=== PATIENT | male | born 1980 | race Caucasian/White ===

== ENCOUNTER 2016-04-16 07:26 | Emergency (ER) | payer MEDICARE ==
--- NOTE | 2016-04-16 09:33 | ER Document Report ---
HPI - HPI Patient complains to provider of: low back pain Onset: Yesterday - when he got up yesterday am Onset/Duration: Intermittent - chronic Quality of pain: Throbbing Pain Level: 3 Context: 35 yo male woke up with low back pain yesteday am. hx chronic back pain intermittanty. NO fever or chills. no radiculopahty or saddle anesthesia. [facility] is [facility]. Associated Symptoms: None Exacerbated by: Movement Relieved by: Denies - ROS ROS below otherwise negative: Yes Systems Reviewed and Negative: Yes All other systems reviewed and negative - DERM Skin Color: Normal Past Medical History - General Information source: Patient - Social History Smoking Status: Never Smoker Chew tobacco use (# tins/day): No Frequency of alcohol use: None Drug Abuse: None Lives with: Spouse/Significant other Family History: Reviewed & Not Pertinent Patient has suicidal ideation: No Patient has homicidal ideation: No - Past Medical History Cardiac Medical History: Reports: Hx Hypertension Psychiatric Medical History: Reports: Hx Anxiety, Hx Depression Surgical Hx: Negative - Immunizations Hx Diphtheria, Pertussis, Tetanus Vaccination: Yes Vertical Provider Document - CONSTITUTIONAL Agree With Documented VS: Yes Exam Limitations: No Limitations General Appearance: Mild Distress - INFECTION CONTROL TRAVEL OUTSIDE OF THE [place] IN LAST 30 DAYS: No - HEENT HEENT: Normocephalic - NECK Neck: Supple - RESPIRATORY O2 Sat by Pulse Oximetry: 99 - BACK Back: Normal Inspection - MUSCULOSKELETAL/EXTREMETIES Musculoskeletal/Extremeties: MAEW, FROM, Tender - lumbar back muscles bilaterally - NEURO Level of Consciousness: Awake, Alert Motor/Sensory: No Motor Deficit, No Sensory Deficit Deep Tendon Reflexes: 2+ - lilian ankle and patellar - DERM Integumentary: Warm, Dry, No Rash Course - Vital Signs Vital signs: Temp Pulse Resp BP Pulse Ox 97.9 F 103 H 20 117/75 99 04/16/16 07:42 04/16/16 07:42 04/16/16 07:42 04/16/16 07:42 04/16/16 07:42 Discharge - Discharge Clinical Impression: exacerbation of chronic low back pain Condition: Good Disposition: HOME, SELF-CARE Instructions: Low Back Pain ([facility]), Warm Packs ([facility]), Ultram ([facility]), Anti- Inflammatory Medication ([facility]), Acetaminophen Additional Instructions: warm compress to er if worse take your motrin Prescriptions: Tramadol HCl [Ultram 50 mg Tablet] 50 mg PO ASDIR PRN #30 tablet PRN Reason: Referrals: ABY CHINO MD [Primary Care Provider] - Follow up as needed
[2016-04-16 09:47] VITALS: BP 120/78
== END 2016-04-16 09:47 | disposition home or self-care (01) ==
LOC: ER 07:26
DX: G89.29 Other chronic pain (principal); M54.5 Low back pain; I10 Essential (primary) hypertension
CPT/HCPCS: 99283

== ENCOUNTER 2016-06-14 09:24 | Emergency (ER) | payer MEDICARE ==
[2016-06-14 09:34] VITALS: BP 116/82
--- NOTE | 2016-06-14 10:19 | ER Document Report ---
ED Medical Screen (RME) - General Stated Complaint: LEFT HIP AND LEG PAIN Time seen by provider: 10:12 Mode of Arrival: Ambulatory Information source: Patient Notes: 35-year-old male with chronic back pain ([facility]) is concerned that his back pain is now radiating into the posterior aspect of his left leg and left lateral left knee. He saw Dr. Solis's nurse practitioner who stated that he strained his leg no saddle anesthesia. And he is wanting to get an MRI to find out what's wrong. I have greeted and performed a rapid initial assessment of this patient. A comprehensive ED assessment, evaluation of the patient, analysis of test results , and completion of the medical decision making process will be conducted by additional ED providers. TRAVEL OUTSIDE OF THE [place] IN LAST 30 DAYS: No - Related Data Allergies/Adverse Reactions: No Known Allergies Allergy (Verified 06/14/16 10:10) Past Medical History - Past Medical History Cardiac Medical History: Reports: Hx Hypertension Psychiatric Medical History: Reports: Hx Anxiety, Hx Depression - Immunizations Hx Diphtheria, Pertussis, Tetanus Vaccination: Yes Physical Exam - Vital signs Vitals: Temp Pulse Resp BP Pulse Ox 97.6 F 89 16 116/82 99 06/14/16 09:33 06/14/16 09:33 06/14/16 09:33 06/14/16 09:33 06/14/16 09:33 Course - Vital Signs Vital signs: Temp Pulse Resp BP Pulse Ox 97.6 F 89 16 116/82 99 06/14/16 09:33 06/14/16 09:33 06/14/16 09:33 06/14/16 09:33 06/14/16 09:33
--- NOTE | 2016-06-14 11:07 | ER Document Report ---
HPI - HPI Patient complains to provider of: left knee pain Onset: Other - One month Onset/Duration: Persistent Quality of pain: Achy Pain Level: 3 Context: Patient complains of left knee pain for the past month. Patient denies any specific injury. Patient states that he was running and swimming and gradually developed knee pain about a month ago. Patient states that pain worsens with standing and range of motion. Patient states that he is here because he wants to have an MRI done so that he can find out definitively what is going on with his continued left knee joint pain. Associated Symptoms: Other - Left knee pain Exacerbated by: Standing, Movement, Walking Relieved by: Denies Similar symptoms previously: No Recently seen / treated by doctor: No - ROS ROS below otherwise negative: Yes Systems Reviewed and Negative: Yes All other systems reviewed and negative - CONSTITUTIONAL Constitutional: DENIES: Fever, Chills - CARDIOVASCULAR Cardiovascular: DENIES: Chest pain - GASTROINTESTINAL Gastrointestinal: DENIES: Nausea, Patient vomiting - MUSCULOSKELETAL Musculoskeletal: REPORTS: Extremity pain - Left knee. DENIES: Swelling - DERM Skin Color: Normal Skin Problems: None Past Medical History - General Information source: Patient - Social History Smoking Status: Current Every Day Smoker Chew tobacco use (# tins/day): No Frequency of alcohol use: Occasional Drug Abuse: None Occupation: [employer] Lives with: Family Family History: Reviewed & Not Pertinent Patient has suicidal ideation: No Patient has homicidal ideation: No Renal/ Medical History: Denies: Hx Peritoneal Dialysis Musculoskeltal Medical History: Reports Hx Arthritis - Chronic back pain Psychiatric Medical History: Reports: Hx Anxiety, Hx Depression Surgical Hx: Negative - Immunizations Hx Diphtheria, Pertussis, Tetanus Vaccination: Yes Vertical Provider Document - CONSTITUTIONAL Agree With Documented VS: Yes Exam Limitations: No Limitations General Appearance: WD/WN, No Apparent Distress - INFECTION CONTROL TRAVEL OUTSIDE OF THE [place] IN LAST 30 DAYS: No - HEENT HEENT: Atraumatic, Normocephalic - NECK Neck: Normal Inspection - RESPIRATORY Respiratory: Breath Sounds Normal, No Respiratory Distress O2 Sat by Pulse Oximetry: 99 - CARDIOVASCULAR Cardiovascular: Regular Rate, Regular Rhythm Pulses: Normal: Posterior tibial - BACK Back: Normal Inspection - MUSCULOSKELETAL/EXTREMETIES Musculoskeletal/Extremeties: MAEW, Tender - Left knee joint tenderness along lateral compartment, no joint effusion, no laxity with varus or valgus maneuvers , patellar tendon intact. Normal skin color and temperature overlying joint., No Edema. negative: Eccymosis - NEURO Level of Consciousness: Awake, Alert, Appropriate Motor/Sensory: No Motor Deficit, No Sensory Deficit - DERM Integumentary: Warm, Dry, No Rash Course - Re-evaluation Re-evalutation: 06/14/16 11:08 Patient states that he wants to leave because he only came here for an MRI of his knees he could find out definitively with on him with his knee. Patient advised that he does not need an emergent MRI of the knee that he can have this scheduled as an outpatient by his primary doctor. Patient states he would like to be discharged now because he only came here for an MRI. - Vital Signs Vital signs: Temp Pulse Resp BP Pulse Ox 97.6 F 89 16 116/82 99 06/14/16 09:33 06/14/16 09:33 06/14/16 09:33 06/14/16 09:33 06/14/16 09:33 Discharge - Discharge Clinical Impression: Knee pain, left Qualifiers: Chronicity: unspecified Qualified Code(s): M25.562 - Pain in left knee Condition: Stable Disposition: HOME, SELF-CARE Instructions: Suspected Internal Knee Injury ([facility]), Sprained Knee ([facility]), Acetaminophen, Use of [id number] Ibuprofen ([facility]) Additional Instructions: Return immediately for any new or worsening symptoms Followup with your primary care provider, call tomorrow to make a followup appointment Follow up with orthopedic DrHam for further evaluation of left knee joint pain Referrals: [facility]HENDRA MALDONADO FOR SURGERY ([facility]) [Provider Group] - Follow up in 3-5 days
== END 2016-06-14 11:15 | disposition home or self-care (01) ==
LOC: ER 09:24
DX: M25.562 Pain in left knee (principal); F17.200 Nicotine dependence, unspecified, uncomplicated
CPT/HCPCS: 99283

== ENCOUNTER 2017-05-23 07:33 | Emergency (ER) | payer MEDICARE ==
[2017-05-23] MEDS ORDERED: MAG HYDROX/AL HYDROX/SIMETH SUSP 30 ML UDCUP PO ONE (08:00)
[2017-05-23] MEDS ORDERED: LIDOCAINE 2% VISCOUS SOLN 20 ML UDCUP PO ONE (08:00)
[2017-05-23] MEDS ORDERED: NORMAL SALINE 1000 ML 1,000 ML IV ONE (08:01)
[2017-05-23] MEDS ORDERED: ONDANSETRON HCL INJ/PF 4 MG/2 ML SDV IV ONE (08:30)
--- NOTE | 2017-05-23 08:32 | ER Document Report ---
ED GI/ - General Chief Complaint: Abdominal Cramping Stated Complaint: ABDOMINAL PAIN Time Seen by Provider: 05/23/17 07:49 Mode of Arrival: Ambulatory Information source: Patient Notes: Patient reports that abdominal pain started around 4 this morning. Patient states he has had a lot of belching. Patient states pain is been off and on and varies in intensity. Patient does complain of headache pain as well. Patient does report a previous history of reflux symptoms. Patient denies any fever. TRAVEL OUTSIDE OF THE [place] IN LAST 30 DAYS: No - HPI Patient complains to provider of: Abdominal pain Onset: This morning Timing/Duration: Gradual Quality of pain: Sharp Pain Level: 5 Location: Epigastric, RUQ Associated symptoms: denies: Chest pain, Diarrhea, Dysuria, Loss of appetite, Nausea, Urinary hesitancy, Urinary frequency, Urinary retention, Urinary urgency Exacerbated by: Denies Relieved by: Denies Similar symptoms previously: No Recently seen / treated by doctor: No - Related Data Allergies/Adverse Reactions: No Known Allergies Allergy (Verified 06/14/16 10:10) Past Medical History - General Information source: Patient - Social History Smoking Status: Current Every Day Smoker Chew tobacco use (# tins/day): No Smoking Education Provided: Yes Frequency of alcohol use: Occasional Drug Abuse: None Occupation: none Family History: Reviewed & Not Pertinent Patient has suicidal ideation: No Patient has homicidal ideation: No Renal/ Medical History: Denies: Hx Peritoneal Dialysis GI Medical History: Reports: Hx Gastroesophageal Reflux Disease Musculoskeltal Medical History: Reports Hx Arthritis - Chronic back pain Psychiatric Medical History: Reports: Hx Anxiety, Hx Depression Surgical Hx: Negative - Immunizations Hx Diphtheria, Pertussis, Tetanus Vaccination: Yes Review of Systems - Review of Systems Constitutional: No symptoms reported. denies: Fever, Recent illness EENT: No symptoms reported Cardiovascular: No symptoms reported. denies: Chest pain Respiratory: No symptoms reported. denies: Cough, Short of breath Gastrointestinal: Abdominal pain. denies: Diarrhea, Nausea, Vomiting, Poor appetite Genitourinary: No symptoms reported. denies: Dysuria, Flank pain Male Genitourinary: No symptoms reported Musculoskeletal: No symptoms reported. denies: Back pain Skin: No symptoms reported Hematologic/Lymphatic: No symptoms reported Neurological/Psychological: No symptoms reported Physical Exam - Vital signs Vitals: Temp Pulse Resp BP Pulse Ox 97.9 F 89 16 117/79 95 05/23/17 07:39 05/23/17 07:39 05/23/17 07:39 05/23/17 07:39 05/23/17 07:39 - General General appearance: Appears well, Alert In distress: None - HEENT Head: Normocephalic Eyes: Normal Conjunctiva: Normal - Respiratory Respiratory status: No respiratory distress Chest status: Nontender Breath sounds: Normal. No: Rales, Rhonchi, Stridor, Wheezing Chest palpation: Normal - Cardiovascular Rhythm: Regular Heart sounds: S1 appreciated, S2 appreciated - Abdominal Inspection: Normal Distension: No distension Bowel sounds: Normal Tenderness: Tender - epig, RUQ Organomegaly: No organomegaly - Back Back: Normal, Nontender. No: CVA tenderness - Extremities General upper extremity: Normal inspection, Nontender, Normal strength General lower extremity: Normal inspection, Nontender, Normal strength - Neurological Neuro grossly intact: Yes Cognition: Normal Orientation: AAOx4 [place] Coma Scale Eye Opening: Spontaneous [place] Coma Scale Verbal: Oriented Sig[place] Coma Scale Motor: Obeys Commands [place] Coma Scale Total: 15 - Psychological Associated symptoms: Normal affect, Normal mood - Skin Skin Temperature: Warm Skin Moisture: Dry Skin Color: Normal Course - Re-evaluation Re-evalutation: 05/23/17 08:32 Patient reports that he vomited in the bathroom. Additional medication ordered. 05/23/17 11:23 Patient reports that abdominal pain has been intermittent and he continues to have frequent belching. Ultrasound report reviewed with Dr. Cross, patient with normal bilirubin, no elevated LFTs and normal lipase test. 05/23/17 12:17 Abdomen continues soft, no guarding. Patient with no concern for biliary obstruction or cholecystitis or cholelithiasis. Discussed worsening symptoms that patient should return immediately for. Patient verbalized understanding and agrees with plan of care. Patient presents with abdominal pain without signs of peritonitis or other life-threatening or serious etiology. Patient appears stable for discharge and has been instructed to return immediately if the symptoms worsen in any way, or in 8-12 hours if not improved for reevaluation. The patient has been instructed to return if the symptoms worsen or change in any way. - Vital Signs Vital signs: Temp Pulse Resp BP Pulse Ox 98.3 F 94 12 130/87 H 98 05/23/17 11:55 05/23/17 11:55 05/23/17 11:55 05/23/17 11:55 05/23/17 11:55 - Laboratory Result Diagrams: 05/23/17 09:30 05/23/17 09:30 Laboratory results interpreted by me: 05/23/17 05/23/17 05/23/17 09:30 09:30 11:30 Seg Neutrophils % 78.6 H Lymphocytes % 12.3 L Carbon Dioxide 31 H Glucose 119 H Urine Ketones TRACE H Urine Urobilinogen 2.0 H Labs- Entire Visit 05/23/17 05/23/17 05/23/17 09:30 09:30 11:30 WBC 7.4 RBC 5.19 Hgb 15.7 Hct 45.8 MCV 88 MCH 30.3 MCHC 34.3 RDW 12.7 Plt Count 186 Seg Neutrophils % 78.6 H Lymphocytes % 12.3 L Monocytes % 7.7 Eosinophils % 0.9 Basophils % 0.5 Absolute Neutrophils 5.8 Absolute Lymphocytes 0.9 Absolute Monocytes 0.6 Absolute Eosinophils 0.1 Absolute Basophils 0.0 Sodium 140.3 Potassium 4.5 Chloride 104 Carbon Dioxide 31 H Anion Gap 5 BUN 11 Creatinine 0.99 Est GFR ( Amer) > 60 Est GFR (Non-Af Amer) > 60 Glucose 119 H Calcium 9.2 Total Bilirubin 0.6 Direct Bilirubin 0.3 Neonat Total Bilirubin Not Reportable Neonat Direct Bilirubin Not Reportable Neonat Indirect Bili Not Reportable AST 28 ALT 27 Alkaline Phosphatase 89 Total Protein 7.4 Albumin 4.3 Lipase 25.9 Urine Color YELLOW Urine Appearance CLEAR Urine pH 8.0 Ur Specific [place] 1.020 Urine Protein NEGATIVE Urine Glucose (UA) NEGATIVE Urine Ketones TRACE H Urine Blood NEGATIVE Urine Nitrite NEGATIVE Urine Bilirubin NEGATIVE Urine Urobilinogen 2.0 H Ur Leukocyte Esterase NEGATIVE Urine WBC (Auto) 0 Urine RBC (Auto) 0 Urine Mucus (Auto) OCC Urine Ascorbic Acid NEGATIVE - Diagnostic Test Radiology reviewed: Reports reviewed Discharge - Discharge Clinical Impression: Epigastric abdominal pain Condition: Stable Disposition: HOME, SELF-CARE Instructions: Abdominal Pain ([facility]), Reflux Disease (GERD) ([facility]) Additional Instructions: Return immediately for any new or worsening symptoms Followup with your primary care provider, call tomorrow to make a followup appointment Return for any worsening of symptoms, or lack of improvement Prescriptions: Omeprazole Magnesium [Prilosec Otc] 20 mg PO DAILY #15 tablet. Sucralfate [Carafate 1 gm Tablet] 1 gm PO ACHS #40 tablet Forms: Smoking Cessation Education Referrals: LEON CHOI MD [Primary Care Provider] - Follow up tomorrow
[2017-05-23 09:59] LABS: ABSOLUTE EOSINOPHILS # (AUTO) 0.1 10^3/uL (0.0-0.6); ABSOLUTE LYMPHOCYTES (AUTO) 0.9 10^3/uL (0.5-4.7); ABSOLUTE MONOCYTES (AUTO) 0.6 10^3/uL (0.1-1.4); ABSOLUTE NEUT (AUTO) 5.8 10^3/uL (1.7-8.2); BASOPHILS % (AUTO) 0.5 % (0-2); EOSINOPHILS % (AUTO) 0.9 % (0-6); HEMATOCRIT 45.8 % (37.9-51.0); HEMOGLOBIN 15.7 g/dL (13.5-17.0); LYMPHOCYTES % (AUTO) 12.3 % (13-45); MEAN CORPUSCULAR HEMOGLOBIN 30.3 pg (27.0-33.4); MEAN CORPUSCULAR HGB CONC 34.3 g/dL (32.0-36.0); MEAN CORPUSCULAR VOLUME 88 fl (80-97); MONOCYTES % (AUTO) 7.7 % (3-13); PLATELET COUNT 186 10^3/uL (150-450); RED BLOOD COUNT 5.19 10^6/uL (4.35-5.55); RED CELL DISTRIBUTION WIDTH 12.7 % (11.5-14.0); SEGMENTED NEUTROPHILS % (AUTO) 78.6 % (42-78); TOTAL CELLS COUNTED % (AUTO) 100 %; WHITE BLOOD COUNT 7.4 10^3/uL (4.0-10.5)
[2017-05-23 10:22] LABS: ALANINE AMINOTRANSFERASE 27 U/L (21-72); ALBUMIN 4.3 g/dL (3.5-5.0); ALKALINE PHOSPHATASE 89 U/L (38-126); ANION GAP 5 (5-19); ASPARTATE AMINO TRANSFERASE 28 U/L (17-59); BILIRUBIN,DIRECT 0.3 mg/dL (0.0-0.4); BILIRUBIN,TOTAL 0.6 mg/dL (0.2-1.3); BLOOD UREA NITROGEN 11 mg/dL (7-20); CALCIUM 9.2 mg/dL (8.4-10.2); CARBON DIOXIDE 31 mmol/L (22-30); CHLORIDE 104 mmol/L (98-107); GLUCOSE 119 mg/dL (75-110); LIPASE 25.9 U/L (23-300); POTASSIUM 4.5 mmol/L (3.6-5.0); SODIUM 140.3 mmol/L (137-145); TOTAL PROTEIN 7.4 g/dL (6.3-8.2)
--- NOTE | 2017-05-23 10:29 | RADIOLOGY REPORT (SQ) ---
EXAM DESCRIPTION: U/S ABDOMEN LIMITED W/O DOP COMPLETED DATE/TIME: 05/23/2017 10:11 am REASON FOR STUDY: epig, RUQ pain COMPARISON: None. TECHNIQUE: Dynamic and static grayscale images acquired of the right upper quadrant and recorded on PACS. Additional selected color Doppler and spectral images recorded. LIMITATIONS: Study limited due to acoustical interference from fat or from air in the bowel. FINDINGS: PANCREAS: Obscured LIVER: No masses. Echotexture normal. LIVER VASCULATURE: Normal directional flow of the main portal vein and hepatic veins. GALLBLADDER: No stones. Normal wall thickness. No pericholecystic fluid. ULTRASOUND-DETECTED NICHOLE'S SIGN: Negative. INTRAHEPATIC DUCTS AND COMMON DUCT: Mildly prominent common bile duct 5.2 mm. AORTA: No aneurysm. RIGHT KIDNEY: Normal size. Normal echogenicity. No solid or suspicious masses. No hydronephrosis. No calcifications. PERITONEAL CAVITY AND RIGHT PLEURAL SPACE: No ascites or effusions. OTHER: No other significant finding. IMPRESSION: No evidence for gallstones. Mildly prominent common bile duct 5.2 mm. TECHNICAL DOCUMENTATION: JOB ID: [id number] [employer]- All Rights Reserved
[2017-05-23] MEDS ORDERED: SIMETHICONE 80 MG TAB.CHEW PO ONE (11:24)
[2017-05-23 11:57] VITALS: BP 130/87
[2017-05-23 12:04] LABS: APPEARANCE,URINE CLEAR; BILIRUBIN,URINE NEGATIVE (NEGATIVE); COLOR,URINE YELLOW; GLUCOSE, URINE NEGATIVE (NEGATIVE); KETONES,URINE TRACE mg/dL (NEGATIVE); LEUKOCYTE ESTERASE,URINE NEGATIVE (NEGATIVE); NITRITE,URINE NEGATIVE (NEGATIVE); PROTEIN,URINE NEGATIVE (NEGATIVE)
== END 2017-05-23 12:58 | disposition home or self-care (01) ==
LOC: ER 07:33
DX: R10.13 Epigastric pain (principal); R51 Headache; F17.200 Nicotine dependence, unspecified, uncomplicated
CPT/HCPCS: 99284; 96361; 96374; 36415; 83690; 85025; 80053; 81001; 76705; J3490; A9270; J2405; J7030

== ENCOUNTER 2018-01-08 10:47 | Emergency (ER) | payer MEDICARE ==
[2018-01-08] MEDS ORDERED: NORMAL SALINE 1000 ML 1,000 ML IV ONE ×2 (10:59→13:52)
[2018-01-08] MEDS ORDERED: ONDANSETRON 4 MG TAB.RAPDIS PO ONE (10:59)
--- NOTE | 2018-01-08 11:01 | ER Document Report ---
ED Medical Screen (RME) - General Chief Complaint: Abdominal Pain Stated Complaint: ABDOMINAL PAIN Time Seen by Provider: 01/08/18 10:59 Mode of Arrival: Ambulatory Information source: Patient Notes: This is a 37-year-old man who presents to the emergency generalized abdominal pain for the past day. He does report nausea and vomiting. He denies any blood in the urine or stool. He has no history of gallstones, kidney stones. He does report drinking alcohol heavily last (3 days ago). He denies fever. TRAVEL OUTSIDE OF THE [place] IN LAST 30 DAYS: No - Related Data Allergies/Adverse Reactions: No Known Allergies Allergy (Verified 01/08/18 10:48) Past Medical History - Social History Frequency of alcohol use: Occasional Drug Abuse: None - Past Medical History Cardiac Medical History: Reports: Hx Hypertension Renal/ Medical History: Denies: Hx Peritoneal Dialysis GI Medical History: Reports: Hx Gastroesophageal Reflux Disease Musculoskeltal Medical History: Reports Hx Arthritis - Chronic back pain Psychiatric Medical History: Reports: Hx Anxiety, Hx Depression - Immunizations Hx Diphtheria, Pertussis, Tetanus Vaccination: Yes Physical Exam - Vital signs Vitals: Temp Pulse Resp BP Pulse Ox 98.6 F 86 18 131/80 H 100 01/08/18 10:51 01/08/18 10:51 01/08/18 10:51 01/08/18 10:51 01/08/18 10:51 Course - Vital Signs Vital signs: Temp Pulse Resp BP Pulse Ox 98.6 F 86 18 131/80 H 100 01/08/18 10:51 01/08/18 10:51 01/08/18 10:51 01/08/18 10:51 01/08/18 10:51 Doctor's Discharge - Discharge Referrals: LEON CHOI MD [Primary Care Provider] - Follow up as needed
[2018-01-08] MEDS ORDERED: METOCLOPRAMIDE HCL INJ/PF 10 MG/2 ML SDV IV ONE (11:12)
[2018-01-08] MEDS ORDERED: DIPHENHYDRAMINE HCL 50 MG/ML VIAL IV ONE (11:12)
[2018-01-08 11:33] LABS: ABSOLUTE EOSINOPHILS # (AUTO) 0.1 10^3/uL (0.0-0.6); ABSOLUTE LYMPHOCYTES (AUTO) 0.8 10^3/uL (0.5-4.7); ABSOLUTE MONOCYTES (AUTO) 0.8 10^3/uL (0.1-1.4); ABSOLUTE NEUT (AUTO) 7.4 10^3/uL (1.7-8.2); BASOPHILS % (AUTO) 0.3 % (0-2); EOSINOPHILS % (AUTO) 0.6 % (0-6); HEMATOCRIT 46.4 % (37.9-51.0); LYMPHOCYTES % (AUTO) 8.6 % (13-45); MEAN CORPUSCULAR HEMOGLOBIN 30.7 pg (27.0-33.4); MEAN CORPUSCULAR HGB CONC 34.5 g/dL (32.0-36.0); MEAN CORPUSCULAR VOLUME 89 fl (80-97); MONOCYTES % (AUTO) 8.6 % (3-13); PLATELET COUNT 206 10^3/uL (150-450); RED BLOOD COUNT 5.22 10^6/uL (4.35-5.55); RED CELL DISTRIBUTION WIDTH 13.1 % (11.5-14.0); SEGMENTED NEUTROPHILS % (AUTO) 81.9 % (42-78); TOTAL CELLS COUNTED % (AUTO) 100 %; WHITE BLOOD COUNT 9.1 10^3/uL (4.0-10.5)
[2018-01-08] MEDS ORDERED: LIDOCAINE 2% VISCOUS SOLN 20 ML UDCUP PO ONE (11:47)
[2018-01-08] MEDS ORDERED: MAG HYDROX/AL HYDROX/SIMETH SUSP 30 ML UDCUP PO ONE (11:47)
--- NOTE | 2018-01-08 11:47 | ER Document Report ---
ED GI/ - General Mode of Arrival: Ambulatory Information source: Patient TRAVEL OUTSIDE OF THE [place] IN LAST 30 DAYS: No <KRUPA SERRANO - Last Filed: 01/08/18 12:58> <JOSE BARBOSA - Last Filed: 01/08/18 16:55> - General Chief Complaint: Abdominal Pain Stated Complaint: ABDOMINAL PAIN Time Seen by Provider: 01/08/18 10:59 Notes: 37-year-old male that presents to the emergency department today with complaints of abdominal pain. Patient states he has had pain for the last 3 days after a "night of drinking". Patient states that he thinks it is his "GERD acting up". Patient states he tried taking Magnesium Citrate at home because he thought he might have been "backed up". Patient states he has vomited a few times yesterday and today. (KRUPA SERRANO) - Related Data Allergies/Adverse Reactions: No Known Allergies Allergy (Verified 01/08/18 10:48) Past Medical History - General Information source: Patient - Social History Smoking Status: Current Every Day Smoker Cigarette use (# per day): Yes Frequency of alcohol use: Occasional Drug Abuse: None Lives with: Family Family History: Reviewed & Not Pertinent Patient has suicidal ideation: No Patient has homicidal ideation: No - Past Medical History Cardiac Medical History: Reports: Hx Hypertension GI Medical History: Reports: Hx Gastroesophageal Reflux Disease Musculoskeletal Medical History: Reports Hx Arthritis - Chronic back pain Psychiatric Medical History: Reports: Hx Anxiety, Hx Depression Surgical Hx: Negative - Immunizations Hx Diphtheria, Pertussis, Tetanus Vaccination: Yes <KRUPA SERRANO - Last Filed: 01/08/18 12:58> Review of Systems - Review of Systems Constitutional: No symptoms reported EENT: No symptoms reported Cardiovascular: No symptoms reported Respiratory: No symptoms reported Gastrointestinal: See HPI, Abdominal pain, Vomiting Genitourinary: No symptoms reported Male Genitourinary: No symptoms reported Musculoskeletal: No symptoms reported Skin: No symptoms reported Hematologic/Lymphatic: No symptoms reported Neurological/Psychological: No symptoms reported -: Yes All other systems reviewed and negative <KRUPA SERRANO - Last Filed: 01/08/18 12:58> Physical Exam <KRUPA SERRANO - Last Filed: 01/08/18 12:58> <JOSE BARBOSA - Last Filed: 01/08/18 16:55> - Vital signs Vitals: Temp Pulse Resp BP Pulse Ox 98.6 F 86 18 131/80 H 100 01/08/18 10:51 01/08/18 10:51 01/08/18 10:51 01/08/18 10:51 01/08/18 10:51 - Notes Notes: Physical Exam: General: Alert, appears well. HEENT: Normocephalic. Atraumatic. PERRL. Extraocular movements intact. Oropharynx clear. Neck: Supple. Non-tender. Respiratory: No respiratory distress. Clear and equal breath sounds bilaterally. Cardiovascular: Regular rate and rhythm. Abdominal: Epigastric and left lower quadrant tenderness to palpation. No distension. Normal Bowel Sounds. Back: Non-tender. No deformity or step off. Extremities: Moves all four extremities. Upper extremities: Normal inspection. Normal ROM. Lower extremities: Normal inspection. No edema. Normal ROM. Neurological: Normal cognition. AAOx4. Normal speech. Psychological: Normal affect. Normal Mood. Skin: Warm. Dry. Normal color. (KRUPA SERRANO) Course - Laboratory Result Diagrams: 01/08/18 11:10 01/08/18 11:10 <KRUPA SERRANO - Last Filed: 01/08/18 12:58> - Laboratory Result Diagrams: 01/08/18 11:10 01/08/18 11:10 - Diagnostic Test Radiology reviewed: Image reviewed, Reports reviewed - Right upper quadrant small bowel air-fluid levels suggests ileus versus small bowel obstruction <JOSE BARBOSA - Last Filed: 01/08/18 16:55> - Re-evaluation Re-evalutation: 01/08/18 14:15 At this time the patient is feeling better. There is some left lower quadrant tenderness but is much better than it was earlier. Listening to his intestines now, it is quite consistent with a small bowel ileus. 01/08/18 16:52 Patient is feeling much better now. He just came from the restroom where he stated that his bowels are starting to move. He will be discharged home with some Zofran for nausea and stay on clear liquids for today. (JOSE BARBOSA) - Vital Signs Vital signs: Temp Pulse Resp BP Pulse Ox 97.9 F 85 16 133/72 H 97 01/08/18 14:52 01/08/18 14:52 01/08/18 14:52 01/08/18 14:52 01/08/18 14:52 - Laboratory Laboratory results interpreted by me: 01/08/18 11:10 Seg Neutrophils % 81.9 H Lymphocytes % 8.6 L Discharge <KRUPA SERRANO - Last Filed: 01/08/18 12:58> <FAMILIA,JOSE - Last Filed: 01/08/18 16:55> - Discharge Clinical Impression: Ileus Nausea and vomiting Qualifiers: Vomiting type: unspecified Vomiting Intractability: non-intractable Qualified Code(s): R11.2 - Nausea with vomiting, unspecified Abdominal pain Qualifiers: Abdominal location: left lower quadrant Qualified Code(s): R10.32 - Left lower quadrant pain Condition: Stable Disposition: HOME, SELF-CARE Additional Instructions: Nausea or Vomiting, Nonspecific Vomiting (or nausea without vomiting) can be caused by many different problems. Of course, it can mean that something's wrong with the stomach, such as "stomach flu," ulcers, or inflammation. But it can also be a symptom of a problem that has nothing to do with the stomach or intestines. Vomiting is common with severe headaches, earaches, and tonsillitis. We see it with pneumonia or heart attacks. Drugs can cause nausea. Many abdominal problems cause vomiting; for example, gallstones, kidney stones, pancreatitis, and intestinal obstruction (blocked bowels). In most cases, curing the vomiting depends on fixing the problem that caused it. For temporary relief, we may use an anti-nausea medicine. For home use, we can prescribe suppositories, chewable pills, pills that dissolve in the mouth, or liquid anti-nausea drugs. If the vomiting seems to be caused by a problem in the stomach, acid-suppressing drugs may be prescribed as well. It's important to avoid dehydration. Sip clear liquids. Take increasing amounts of fluid over the first 24 hours. Then start small amounts of bland foods (such as dry toast, applesauce, mashed potato). Avoid aspirin, tobacco, and alcohol. Gradually resume your usual diet. If the vomiting worsens, if the problem that's making you vomit worsens, or if there's evidence of bleeding in the stomach (such as black, tarry stool, bloody or black vomit, or lightheadedness), you should return immediately. Call your doctor if you aren't improved in 24 to 36 hours. Drink clear liquids today. Take Zofran for nausea if needed. Rest today. Follow-up with your doctor tomorrow if not feeling better. RETURN TO THE EMERGENCY ROOM IF ANY NEW OR WORSENING SYMPTOMS. Referrals: LEON CHOI MD [Primary Care Provider] - Follow up as needed Scribe Attestation: 01/08/18 12:00 I personally performed the services described in the documentation, reviewed and edited the documentation which was dictated to the scribe in my presence, and it accurately records my words and actions. (JOSE BARBOSA) Scribe Documentation - Scribe Written by Scribe:: Dwayne Ch, 01/08/2018 1212 acting as scribe for :: Familia <KRUPA SERRANO - Last Filed: 01/08/18 12:58>
[2018-01-08 11:53] LABS: ALANINE AMINOTRANSFERASE 67 U/L (21-72); ALBUMIN 4.4 g/dL (3.5-5.0); ALKALINE PHOSPHATASE 91 U/L (38-126); ANION GAP 10 (5-19); ASPARTATE AMINO TRANSFERASE 30 U/L (17-59); BILIRUBIN,DIRECT 0.3 mg/dL (0.0-0.4); BLOOD UREA NITROGEN 12 mg/dL (7-20); CALCIUM 9.4 mg/dL (8.4-10.2); CARBON DIOXIDE 29 mmol/L (22-30); CHLORIDE 101 mmol/L (98-107); GLUCOSE 96 mg/dL (75-110); LIPASE 28.7 U/L (23-300); POTASSIUM 4.8 mmol/L (3.6-5.0); SODIUM 139.8 mmol/L (137-145); TOTAL PROTEIN 7.6 g/dL (6.3-8.2)
--- NOTE | 2018-01-08 13:04 | RADIOLOGY REPORT (SQ) ---
EXAM DESCRIPTION: ACUTE ABDOMEN SERIES COMPLETED DATE/TIME: 01/08/2018 12:28 pm REASON FOR STUDY: LLQ, epigastric pain w/ N V COMPARISON: May ultrasound. NUMBER OF VIEWS: Three views. TECHNIQUE: Frontal chest, supine abdomen and upright/decubitus abdomen radiographic images acquired. LIMITATIONS: None. FINDINGS: CHEST: Lungs clear of infiltrates. FREE AIR: None. No abnormal gas collections. BOWEL GAS PATTERN: Nonspecific. Scattered small air-fluid levels. Most conspicuous in the upper abd omen. Some of this looks like it is within small bowel. Differential is ileus versus developing obs truction. CALCIFICATIONS: No suspicious calcifications. HARDWARE: None in the abdomen. SOFT TISSUES: No gross mass or suggestion of organomegaly. BONES: No acute fracture. No worrisome bone lesions. OTHER: No other significant finding. IMPRESSION: Ileus versus early small bowel obstruction. TECHNICAL DOCUMENTATION: JOB ID: [id number] [employer]- All Rights Reserved Reading location - IP/workstation name: [email or web address]
[2018-01-08 13:25] LABS: APPEARANCE,URINE SLIGHTLY-CLOUDY; BILIRUBIN,URINE NEGATIVE (NEGATIVE); COLOR,URINE YELLOW; GLUCOSE, URINE NEGATIVE (NEGATIVE); KETONES,URINE NEGATIVE (NEGATIVE); LEUKOCYTE ESTERASE,URINE NEGATIVE (NEGATIVE); NITRITE,URINE NEGATIVE (NEGATIVE); PROTEIN,URINE NEGATIVE (NEGATIVE); URINE SPECIFIC GRAVITY 1.024; UROBILINOGEN,URINE NEGATIVE mg/dL (<2.0)
[2018-01-08] MEDS ORDERED: ONDANSETRON ODT 4 MG TAB (6 TAB/ER DISP) PO PRN (16:55)
[2018-01-08 17:06] VITALS: BP 129/82
== END 2018-01-08 17:06 | disposition home or self-care (01) ==
LOC: ER 10:47
DX: K56.7 Ileus, unspecified (principal); R11.2 Nausea with vomiting, unspecified; R10.32 Left lower quadrant pain; R10.816 Epigastric abdominal tenderness; R10.814 Left lower quadrant abdominal tenderness; F17.210 Nicotine dependence, cigarettes, uncomplicated; I10 Essential (primary) hypertension; Z87.19 Personal history of other diseases of the digestive system
CPT/HCPCS: 99284; 96361; 96374; 96375; 36415; 83690; 85025; 80053; 81001; 74022; J1200; A9270 ×2; J3490; J2765; S0119

== ENCOUNTER 2019-09-08 09:58 | Emergency (ER) | payer OTHER, MEDICARE ==
[2019-09-08] MEDS ORDERED: DOCUSATE SODIUM 100 MG CAPSULE RT_EAR ONE ×2 (10:14→13:40)
--- NOTE | 2019-09-08 10:19 | ER Document Report ---
ED ENT - General Chief Complaint: Ear Pain Stated Complaint: RIGHT EAR PAIN Time Seen by Provider: 09/08/19 10:14 Primary Care Provider: GLENNY KOCH [Primary Care Provider] - Follow up as needed BRENDON JAIN MD [ACTIVE STAFF] - Follow up as needed Mode of Arrival: Ambulatory Information source: Patient Notes: 38-year-old male presented to ED for pain to right ear since Tuesday. Patient states it is very painful at times at other times is not painful. There is a cerumen traction at this time and I cannot see the tympanic membrane. I will have a disimpaction completed by the nursing and then I will reexamine the ear. TRAVEL OUTSIDE OF THE [place] IN LAST 30 DAYS: No - HPI Patient complains to provider of: Ear problem - Since Tuesday Onset: Other - Since Tuesday Onset/Duration: Gradual Quality of pain: Achy, Dull, Stabbing Severity: Moderate Pain Level: 3 Location of pain: Ears Associated symptoms: Ear pain Similar symptoms previously: Yes Recently seen / treated by doctor: No - Related Data Allergies/Adverse Reactions: No Known Allergies Allergy (Verified 09/08/19 10:11) Past Medical History - General Information source: Patient - Social History Smoking Status: Current Every Day Smoker Chew tobacco use (# tins/day): No Frequency of alcohol use: Occasional Drug Abuse: None Lives with: Family Family History: Reviewed & Not Pertinent Patient has homicidal ideation: No - Past Medical History Cardiac Medical History: Reports: Hx Hypertension Pulmonary Medical History: Reports: None EENT Medical History: Reports: None Neurological Medical History: Reports: None Endocrine Medical History: Reports: None Renal/ Medical History: Reports: None Malignancy Medical History: Reports None GI Medical History: Reports: Hx Gastroesophageal Reflux Disease Musculoskeletal Medical History: Reports Hx Arthritis - Chronic back pain Skin Medical History: Reports None Psychiatric Medical History: Reports: Hx Anxiety, Hx Depression Traumatic Medical History: Reports: None Infectious Medical History: Reports: None Surgical Hx: Negative Past Surgical History: Reports: None - Immunizations Hx Diphtheria, Pertussis, Tetanus Vaccination: Yes Review of Systems - Review of Systems Constitutional: No symptoms reported EENT: Ear pain Cardiovascular: No symptoms reported Respiratory: No symptoms reported Gastrointestinal: No symptoms reported Genitourinary: No symptoms reported Male Genitourinary: No symptoms reported Musculoskeletal: No symptoms reported Skin: No symptoms reported Hematologic/Lymphatic: No symptoms reported Neurological/Psychological: No symptoms reported -: Yes All other systems reviewed and negative Physical Exam - Vital signs Vitals: Temp Pulse Resp BP Pulse Ox 98.2 F 99 18 149/78 H 97 09/08/19 10:06 09/08/19 10:06 09/08/19 10:06 09/08/19 10:06 09/08/19 10:06 Interpretation: Normal - General General appearance: Appears well, Alert - HEENT Head: Normocephalic, Atraumatic Eyes: Normal Pupils: PERRL Ears: Normal External canal: Cerumen impaction Tympanic membrane: Normal, Other - Slightly red after disimpaction of the earwax. It took a while to get all of the wax out because it was severely impacted. There was no otitis media no otitis externa states he felt much better and the pain was gone Sinus: Normal Nasal: Normal Mouth/Lips: Normal Mucous membranes: Normal Pharynx: Normal Neck: Normal - Respiratory Respiratory status: No respiratory distress Chest status: Nontender Breath sounds: Normal Chest palpation: Normal - Cardiovascular Rhythm: Regular Heart sounds: Normal auscultation Murmur: No - Abdominal Inspection: Normal Distension: No distension Bowel sounds: Normal Tenderness: Nontender Organomegaly: No organomegaly - Back Back: Normal, Nontender - Extremities General upper extremity: Normal inspection, Nontender, Normal color, Normal ROM, Normal temperature General lower extremity: Normal inspection, Nontender, Normal color, Normal ROM, Normal temperature, Normal weight bearing. No: Dilia's sign - Neurological Neuro grossly intact: Yes Cognition: Normal Orientation: AAOx4 Sigifredo Coma Scale Eye Opening: Spontaneous Sigifredo Coma Scale Verbal: Oriented [place] Coma Scale Motor: Obeys Commands Sigifredo Coma Scale Total: 15 Speech: Normal Motor strength normal: LUE, RUE, LLE, RLE Sensory: Normal - Psychological Associated symptoms: Normal affect, Normal mood - Skin Skin Temperature: Warm Skin Moisture: Dry Skin Color: Normal Course - Re-evaluation Re-evalutation: 09/08/19 21:02 Patient was treated with Colace to the ear twice with irrigation with saline and peroxide after each dose of Colace. After the second dose of Colace the impaction was relieved and patient was feeling much better. He states his pain was much better and he was discharged home. - Vital Signs Vital signs: Temp Pulse Resp BP Pulse Ox 98.2 F 72 16 128/69 H 100 09/08/19 15:03 09/08/19 15:03 09/08/19 15:03 09/08/19 15:03 09/08/19 15:03 Discharge - Discharge Clinical Impression: Impacted cerumen of right ear Condition: Stable Disposition: HOME, SELF-CARE Additional Instructions: Cerumen Impaction The physician found a severe buildup of earwax in your ear canal, called a cerumen impaction. A large plug of wax can cause earache, decreased hearing, or itching. It can even lead to infection of the outer ear. An impaction of earwax can be removed by the physician using special instruments, or can be irrigated out using a stream of water (often a little of both is required). Some less severe impactions are removed using ear drops that dissolve wax. In the future, don't get soap in your ear canal. Soap doesn't remove wax -- it simply hardens it in place. Don't use cotton swabs. These just push the wax into large clumps, where it doesn't flow out normally. Dust and smoke also contribute to wax buildup. Earwax softening drops are available without prescription, and can be used periodically. Contact the doctor if you develop decreased hearing, earache, drainage from the ear, or severe headache. Your ear has been irrigated and the wax has been removed for the day. Please follow-up with the ears nose and throat specialist. You can buy [id number] ear irrigations if you encounter this again. FOLLOW-UP CARE: If you have been referred to a physician for follow-up care, call the physicians office for an appointment as you were instructed or within the next two days. If you experience worsening or a significant change in your symptoms, notify the physician immediately or return to the Emergency Department at any time for re-evaluation. Referrals: [facility] [Primary Care Provider] - Follow up as needed BRENDON JAIN MD [ACTIVE STAFF] - Follow up as needed
[2019-09-08 15:04] VITALS: BP 128/69
== END 2019-09-08 15:03 | disposition home or self-care (01) ==
LOC: ER 09:58
DX: H61.21 Impacted cerumen, right ear (principal); H92.01 Otalgia, right ear; I10 Essential (primary) hypertension; F17.200 Nicotine dependence, unspecified, uncomplicated
CPT/HCPCS: 99282